=== PATIENT | female | born 2000 ===

== ENCOUNTER 2020-02-18 10:40 | Outpatient (CLI) | payer OTHER | END 2020-02-18 15:00 | disposition home or self-care (01) | LOC: LAB 10:40 | DX: L04.0 Acute lymphadenitis of face, head and neck (principal); J30.89 Other allergic rhinitis; E78.00 Pure hypercholesterolemia, unspecified ==

== ENCOUNTER 2020-03-10 11:14 | Outpatient (CLI) | payer OTHER | END 2020-03-10 11:19 | disposition home or self-care (01) | LOC: SONOGRAMA 11:14 → MAMO-SONO 11:15 → SONOGRAMA 11:19 | PROVIDERS: ATTEND Family Medicine | DX: L04.0 Acute lymphadenitis of face, head and neck (principal); E04.2 Nontoxic multinodular goiter ==

== ENCOUNTER → 2020-04-28 14:05 | Outpatient (CLI) | payer OTHER | END | disposition home or self-care (01) | LOC: LAB 14:05 | PROVIDERS: ATTEND Internal Medicine Hematology & Oncology | DX: D50.8 Other iron deficiency anemias (principal); I10 Essential (primary) hypertension; D51.8 Other vitamin B12 deficiency anemias; B17.8 Other specified acute viral hepatitis; Z11.59 Encounter for screening for other viral diseases; B27.99 Infectious mononucleosis, unspecified with other complication; A54.89 Other gonococcal infections; A53.9 Syphilis, unspecified; A74.89 Other chlamydial diseases; E03.8 Other specified hypothyroidism; R59.1 Generalized enlarged lymph nodes ==

== ENCOUNTER 2020-08-06 07:51 | Outpatient (CLI) | payer OTHER | END 2020-08-06 07:57 | disposition home or self-care (01) | LOC: SONOGRAMA 07:51 | PROVIDERS: ATTEND Internal Medicine Hematology & Oncology | DX: R59.1 Generalized enlarged lymph nodes (principal); E04.1 Nontoxic single thyroid nodule; E03.8 Other specified hypothyroidism; B27.90 Infectious mononucleosis, unspecified without complication ==

== ENCOUNTER 2020-08-09 09:26 | Outpatient (CLI) | payer OTHER | END 2020-08-09 09:31 | disposition home or self-care (01) | LOC: LAB 09:26 | PROVIDERS: ATTEND Internal Medicine Hematology & Oncology | DX: D50.8 Other iron deficiency anemias (principal); I10 Essential (primary) hypertension; D51.8 Other vitamin B12 deficiency anemias; B27.89 Other infectious mononucleosis with other complication; E03.8 Other specified hypothyroidism; R59.1 Generalized enlarged lymph nodes ==

== ENCOUNTER → 2020-11-01 08:51 | Outpatient (CLI) | payer OTHER | END | disposition home or self-care (01) | LOC: LAB 08:51 | PROVIDERS: ATTEND Internal Medicine Hematology & Oncology | DX: D50.8 Other iron deficiency anemias (principal); R79.89 Other specified abnormal findings of blood chemistry; I10 Essential (primary) hypertension; R74.02 Elevation of levels of lactic acid dehydrogenase [LDH]; K76.89 Other specified diseases of liver; D51.8 Other vitamin B12 deficiency anemias; B27.89 Other infectious mononucleosis with other complication; E03.8 Other specified hypothyroidism; R59.1 Generalized enlarged lymph nodes ==

== ENCOUNTER 2020-11-17 08:38 | Outpatient (CLI) | payer OTHER | END 2020-11-17 08:44 | disposition home or self-care (01) | LOC: SONOGRAMA 08:38 → MAMO-SONO 08:45 | PROVIDERS: ATTEND Internal Medicine Hematology & Oncology | DX: E04.2 Nontoxic multinodular goiter (principal); E03.8 Other specified hypothyroidism; B27.90 Infectious mononucleosis, unspecified without complication; R59.1 Generalized enlarged lymph nodes ==

== ENCOUNTER → 2021-02-20 09:00 | Outpatient (CLI) | payer OTHER | END | disposition home or self-care (01) | LOC: LAB 09:00 | PROVIDERS: ATTEND Internal Medicine Hematology & Oncology | DX: B27.90 Infectious mononucleosis, unspecified without complication (principal); R59.1 Generalized enlarged lymph nodes; E03.8 Other specified hypothyroidism; E06.3 Autoimmune thyroiditis; D51.0 Vitamin B12 deficiency anemia due to intrinsic factor deficiency; K76.89 Other specified diseases of liver; R74.02 Elevation of levels of lactic acid dehydrogenase [LDH]; D50.8 Other iron deficiency anemias ==